=== PATIENT | male | born 1980 | race Caucasian/White ===

== ENCOUNTER → 2023-01-09 | Outpatient (CLI) | payer OTHER, SELFPAY | END | disposition home or self-care (01) | LOC: LABSPEC 08:06 | PROVIDERS: PCP Family Medicine; Referring Provider Family Medicine; Visit Provider Family Medicine | DX: R19.7 Diarrhea, unspecified (principal) | CPT/HCPCS: 83630; 87177; 87209; 87506 ==

== ENCOUNTER → 2023-01-11 | Outpatient (CLI) | payer OTHER, SELFPAY ==
--- NOTE | 2023-01-11 07:24 | US_ITS ---
ACR Level 3 findings have been noted. An addendum which confirms receipt of the report will follow. INDICATION: RUQ PAIN WITH FATTY FOODS EXAMINATION: US Abdomen Limited (quadrant) TECHNIQUE: [place]-scale and color Doppler imaging was performed of the right upper abdominal quadrant. COMPARISON: None. Findings: The liver is homogenous and normal in echogenicity and echotexture. There is no evidence of contour nodularity. No focal hepatic mass is identified. The main portal vein is normal in size and patent demonstrating hepatopetal flow. The gallbladder is unremarkable without evidence of stones, wall thickening or pericholecystic fluid. Sonographic Edwards''s tenderness is not appreciated. There is no evidence of intrahepatic biliary ductal dilatation. The CBD is dilated measuring 9 mm at the level of the damian hepatis. The pancreas is obscured by overlying bowel gas. Right kidney measures 12.9 cm in length. It is normal in echogenicity. No focal renal lesion is identified. There is no evidence of hydronephrosis. US/Abdomen Limited IMPRESSION: Mild dilatation of the common bile duct may be due to an occult stone, mass or stricture. Recommend MRCP for further evaluation. Electronically Signed: Roberto Xiao MD at 20:16 EDT ,
== END | disposition home or self-care (01) ==
LOC: US 07:22
PROVIDERS: PCP Family Medicine; Referring Provider Family Medicine; Visit Provider Family Medicine
DX: R10.11 Right upper quadrant pain (principal)
CPT/HCPCS: 76705

== ENCOUNTER → 2023-01-12 | Outpatient (CLI) | payer OTHER, SELFPAY ==
[2023-01-12 12:40] LABS: Absolute Lymphocyte Count 2.12 X10^3/uL (0.83-4.51); Basophil# 0.09 X10^3/uL; Basophil% 1.9 % (0-1); Eosinophil# 0.19 X10^3/uL; Hematocrit 40.4 % (40-54); Hemoglobin 13.7 g/dL (13.0-16.5); Lymphocyte # 2.12 X10^3/ul (0.83-4.51); Lymphocyte % 44.1 % (19-41); Mean Corp Hgb Conc 33.9 g/dL (32-36); Mean Corpuscular Hgb 29.8 pg (27.0-32.0); Mean Corpuscular Volume 87.8 fL (80-94); Mean Platelet Vol. 10.2 fl (6.2-12.0); Monocyte# 0.41 X10^3/uL; Monocyte% 8.5 % (0-10); NRBC Flagged by Analyzer 0 % (0-5); Neutrophil # 1.99 X10^3/uL (2.7-7.7); Neutrophil % 41.3 % (47-70); Platelet Count 203 K/mm3 (150-450); RBC Distribution Width CV 12.6 % (11.6-14.6); RBC Distribution Width SD 40.5 fl (35.1-43.9); White Blood Count 4.8 K/mm3 (4.4-11.0)
[2023-01-12 12:46] LABS: AST(SGOT) 75 U/L (15-37); Alanine Aminotransfer ALT/SGPT 74 U/L (16-61); Albumin, Serum 3.8 g/dL (3.2-5.0); Alkaline Phosphatase 85 U/L (45-117); Bilirubin, Direct 0.19 mg/dL (0.00-0.30); Globulin 3.4 g/dL (2.2-4.2); Protein, Total 7.2 g/dL (6.4-8.2)
== END | disposition home or self-care (01) ==
LOC: BFHLAB 10:19
PROVIDERS: PCP Family Medicine; Referring Provider Family Medicine; Visit Provider Family Medicine
DX: K83.8 Other specified diseases of biliary tract (principal)
CPT/HCPCS: 36415; 80076; 85025

== ENCOUNTER → 2023-01-18 | Outpatient (CLI) | payer OTHER, SELFPAY ==
--- NOTE | 2023-01-18 07:49 | NM_ITS ---
CLINICAL: 42-year-old male with history of bile duct dilatation. RADIONUCLIDE HEPATOBILIARY SCINTIGRAPHY COMPARISON: Abdominal ultrasound report 01/11/2023 FINDINGS: Following the intravenous administration of 5.5 mCi of 99m Tc Mebrofenin, hepatobiliary images reveal: 1. Relatively prompt and homogeneous radiopharmaceutical concentration is noted by a normal sized liver. No parenchymal defects are identified. 2. Gallbladder activity is identified at 17 minutes post radiopharmaceutical administration. 3. Small intestinal tract is observed at 8-9 minutes following tracer injection. 4. Washout of the radiopharmaceutical by the hepatic parenchyma appears qualitatively normal. Cholecystokinin (0.02 ug/kg) was administered intravenously over a 30-minute period. The post CCK gallbladder ejection fraction calculated at 19 minutes following Cholecystokinin administration was noted to be 67.0 % (normal greater than 35%). During 30 minutes of post CCK imaging, there is no scintigraphic evidence of reflux of the radiotracer into the common hepatic duct or refilling of the gallbladder. RI/Hepatobilliary Img w/Pharm Int IMPRESSION: 1. NORMAL 99m Tc Mebrofenin hepatobiliary imaging examination with Cholecystokinin. A. A gallbladder ejection fraction calculated to be greater than 35% following the administration of Cholecystokinin makes the probability of functional hepatobiliary disease (gallbladder and/or sphincter of Oddi dyskinesia) and/or organic hepatobiliary disease (chronic acalculous cholecystitis and/or cystic duct syndrome) to be low. (Yelena Mohan et al, Journal of Nuclear Medicine 32:1695, 1991). Electronically Signed: Marco A Kevin, at 23:30 EDT ,
== END | disposition home or self-care (01) ==
LOC: NM 07:48
PROVIDERS: PCP Family Medicine; Referring Provider Family Medicine; Visit Provider Family Medicine
DX: R10.11 Right upper quadrant pain (principal)
CPT/HCPCS: 78227; A9537; J2805

== ENCOUNTER → 2023-03-06 | Outpatient (CLI) | payer OTHER, SELFPAY | END | disposition home or self-care (01) | LOC: PSN 06:52 | PROVIDERS: PCP Family Medicine; Referring Provider Family Medicine; Visit Provider Family Medicine | DX: R00.2 Palpitations (principal); I49.3 Ventricular premature depolarization | CPT/HCPCS: 93225; 93226 ==

== ENCOUNTER → 2023-11-23 | Outpatient (CLI) | payer OTHER, SELFPAY ==
--- NOTE | 2023-11-23 07:24 | US_ITS ---
STUDY: ABDOMINAL ULTRASOUND - RIGHT UPPER QUADRANT REASON FOR VISIT: Male, 43 years old Unspecified abdominal pain TECHNIQUE: Ultrasound evaluation of the right upper quadrant was performed with real-time and static alves-scale imaging. TECHNICAL QUALITY: Adequate. COMPARISON: Comparison is made with prior study January 11, 2023. FINDINGS: Liver: The liver is slightly enlarged and measures 17.3 cm. There is increased echogenicity consistent with fatty infiltration. The bile ducts are within normal limits. There is hepatic color flow. The direction of portal flow is hepatopetal. There is no demonstrated mass lesion. Gallbladder: Normal distended gallbladder. The gallbladder wall measures 1.9 mm. There is a negative sonographic Edwards''s sign. There is no pericholecystic fluid. There are no gallstones. Common Bile Duct (C.B.D.): The common bile duct measures 3.8 mm. Pancreas: Normal size of the head, body and tail of the pancreas. There is increased echogenicity of the pancreas. There is no demonstrated pancreatic mass or cyst. Right Kidney: Normal size of the right kidney. The right kidney measures 11.8 cm x 5.7 cm x 5.4 cm. Normal renal cortex. The right cortex measures 1.6 cm. There is no demonstrated renal mass or cyst. There is no right hydronephrosis. US/Abdomen Limited IMPRESSION: Mild hepatomegaly and fatty infiltration of the liver. Electronically Signed: Frank Cooper MD at 15:17 EDT ,
== END | disposition home or self-care (01) ==
PROVIDERS: PCP Family Medicine; Referring Provider Family Medicine; Visit Provider Family Medicine
DX: R74.8 Abnormal levels of other serum enzymes (principal); R10.9 Unspecified abdominal pain
CPT/HCPCS: 76705

== ENCOUNTER 2025-07-27 06:54 | Emergency (ER) | payer OTHER, SELFPAY ==
[2025-07-27 06:55] VITALS: BP 153/100; PULSE 97; RESP 18; TEMP 36.8; O2SAT 99; BMI 30.8
[2025-07-27 07:02] VITALS: BP 168/101; PULSE 94; RESP 18; TEMP 36.8; O2SAT 98
--- NOTE | 2025-07-27 07:06 | EX.ED.DYSGE1 ---
HPI History of Present Illness Chief Complaint: Wound Informant: patient Narrative Narrative: Patient is a 44-year-old male with past medical history of hypertension. 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 He states that his right middle/third finger got pinched between the the hinge of the tailgate and the metal portion of the gate. He states when this occurred he did sustain a small laceration to the middle finger. He states he did not think much of this and continued to work his job and he did so for the rest of Sunday and all day Sunday. He states he woke up this morning and noticed that the middle finger is now swollen and painful. He states he is unsure if this is from a potential fracture buildup of blood or infection and with this presents for evaluation He states he does not have any history of immunosuppression and he reports he is [id number] Medical History HTN (hypertension) Home Medications ?Medication ?Instructions ?Recorded ?Last Taken ?Type amoxicillin 875 mg-potassium 1 tab PO BID 7 days #14 tabs 07/27/25 Unknown Rx clavulanate 125 mg tablet Allergy/AdvReac Type Severity Reaction Status Date / Time No Known Allergies Allergy Verified 07/27/25 06:56 Social History Smoking Status: Never smoker ROS ROS ED Constitutional Constitutional ED: Denies chills or fever(s) Cardiovascular Cardiovascular: Denies chest pain Respiratory/Chest Respiratory/Chest: Denies cough or dyspnea Gastrointestinal Gastrointestinal: Denies abdominal pain, diarrhea, nausea or vomiting Musculoskeletal Musculoskeletal: Reports other Details: Positive right middle finger pain Integumentary Reports other Details: Positive swelling and abrasion to right middle finger Neurologic Neurologic: Denies headache(s), paresthesias or weakness Hematologic/Lymphatic Hematologic/Lymphatic: Denies easy bleeding or easy bruising EXAM Physical Exam Const Vital Signs: 07/27/25 06:55 07/27/25 07:02 Temperature 98.3 F 98.3 F Temperature Source Oral Oral Pulse Rate 97 94 Respiratory Rate 18 18 Blood Pressure 153/100 H 168/101 H Blood Pressure Mean 117 123 Pulse Ox 99 98 Oxygen Delivery Method Room Air Room Air Positive well nourished and well developed General Appearance ED: well developed HEENT HEENT Narrative: Normocephalic atraumatic Eyes PERRL and EOMs intact bilaterally General Eye ED: Negative for scleral icterus Neck supple Resp normal respiratory effort and clear to auscultation bilaterally Cardio regular rate and regular rhythm Extremity Extremity Narrative: Right upper extremity is neurovascularly intact; AIN/PIN are intact and normal. Patient has asymmetric swelling to both the dorsal and volar aspect of the proximal phalanx of the right middle finger. There is asymmetric warmth and mild erythema noted. The patient has a superficial abrasion/laceration at the PIP joint space on the volar aspect of the middle finger as well. There is no crepitance palpated. No lymphangitic streaking. No sign of injury to the tendon. No subungual hematoma Remainder the exam is normal Neuro oriented x3, CN's II-XII intact bilaterally and no sensory deficits noted Sensorium / Orientation: alert Psych mental status grossly normal Skin Skin Narrative: Soft tissue changes to the right middle finger as documented above MDM MDM MDM Narrative Medical decision making narrative: Patient arrived to the ER hypertensive but has a past medical history of this and otherwise stable vitals. He had a direct trauma to his right middle finger 2 days ago. Because of this there is concern for contusion versus hematoma versus fracture. By physical exam there is no sign of ligamentous or tendon injury. With the asymmetric warmth and slight redness this could be developing hematoma from his repetitive use but also potential secondary infection. As he does not have a history of immunosuppression and he does not show signs of infectious tenosynovitis or lymphangitic streaking I do not feel the need for laboratory studies. An x-ray will be obtained to rule out fracture. X-ray revealed no acute fracture or retained foreign body or signs of free air. In order to assess for swelling from hematoma versus potential developing abscess I did place an ultrasound over top of the patient's finger. There was a small black pocket noted concerning for fluid/infection. Therefore I cleaned the finger with chlorhexidine and performed a needle decompression using an 18-gauge needle. The ultrasound confirmed the needle was within the fluid pocket but all that returned was blood indicating the swelling is most likely hematoma. Manual pressure was then applied to the finger to express any remaining blood. The finger was then wrapped with Coban to provide pressure and help prevent return of swelling. In order to cover for potential and faction that is just early in nature as the injury occurred roughly 48 hours ago I will also place him on Augmentin. However as he does not have history of immunosuppression a fever or signs of lymphangitic streaking or crepitance I do not feel the need for further workup at this time and he is otherwise safe for discharge History & Record Review Discussion w/independent historian: Patient Radiography Diagnostic Testing: Clinical Impression(s) from Imaging Studies Hand X-Ray 07/27/25 07:13 IMPRESSION: Soft tissue swelling. No fracture seen. Reading Location: [facility] Right hand x-ray as interpreted by the emergency medicine physician reveals soft tissue swelling of the right third digit without acute fracture or dislocation free air or retained foreign body Discharge Plan Triage Chief Complaint: Wound ED Provider: Jovany Suarez Dx/Rx/DC Orders Clinical Impression: Hematoma of right middle finger, Crushing injury of right middle finger Instructions: ED Crush Injury, Hand, ED Hematoma Prescriptions: New amoxicillin-pot clavulanate 875-125 mg tablet 1 tab PO BID 7 Days Qty: 14 0RF Primary Care Provider: Beverly George Referrals: Beverly George DO [Primary Care Provider, Family Practice] Activity Restrictions/Additional Instructions: Your x-ray revealed no sign of fracture or retained foreign object. The needle decompression only produced blood indicating your swelling is from a hematoma/bleeding underneath the skin from the crush injury. However I do have concern for potential infection setting and based on the contamination of the wound. Therefore take the Augmentin as directed to help prevent this. If you notice that there is foul-smelling discolored thick discharge from the wound/finger you develop a fever or there is streaking down the hand and arm this could indicate worsening infection and you need to return to the ER for repeat evaluation. Otherwise keep the finger wrapped in order to prevent reoccurrence of swelling and ice the area to help with symptoms as well. Print Language: Faroese Disposition Disposition: Home, Self Care
--- NOTE | 2025-07-27 07:13 | RAD_ITS ---
PROCEDURE: HAND MIN 3 VIEWS 07/27/2025 REASON FOR EXAM: INJURY Injury to the 3rd finger. TECHNIQUE: Procedure Code: HARDY Modality: DX Procedure: HAND MIN 3 VIEWS Laterality: Right hand. COMPARISON: None FINDINGS: Bones: No fracture seen. Joints: Normal alignment. Soft tissues: Soft tissue swelling. Other: RAD/Hand Min 3 Views IMPRESSION: Soft tissue swelling. No fracture seen. Reading Location: [facility]
[2025-07-27 08:08] VITALS: BP 164/99; PULSE 78; RESP 16; TEMP 36.8; O2SAT 99
--- OUTSIDE RECORDS SUMMARY | 2025-07-27 08:10 | XMS RPT_ITS | CCD ---
Author Organization [facility] Care Team Providers Care [address] Worker Name Role Phone Beverly George DO Primary Care Provider [phone] MARQUISE SANTANA Attending Unavailable BEVERLY GEORGE Primary Care Unavailable MALYS, BEVERLY YARY Referring Unavailable SANTANA, MARQUISE Attending Unavailable MALYS, BEVERLY YARY Primary Care Unavailable SANTANA, MARQUISE Referring Unavailable MALYS, BEVERLY YARY Primary Care Unavailable Malys, Beverly Primary Care Unavailable Miedel, Apple Referring Unavailable Miedel, Apple Attending Unavailable Malys, Beverly Primary Care Unavailable Malys, Beverly Attending Unavailable Malys, Beverly Referring Unavailable Malys, Beverly Primary Care Unavailable Malys, Beverly Attending Unavailable Malys, Beverly Referring Unavailable Miedel, Apple Attending Unavailable Miedel, Apple Referring Unavailable Malys, Beverly Primary Care Unavailable Eddie, [place] Attending Unavailable Miedel, Apple Attending Unavailable Miedel, Apple Referring Unavailable Malys, Beverly Primary Care Unavailable Miedel, Apple Attending Unavailable Malys, Beverly Primary Care Unavailable Miedel, Apple Referring Unavailable Medications Current Medications Medication Drug Class(es) Dates Sig (Normalized) Sig (Original) amLODIPine 5 mg oral tablet (3 sources) Dihydropyridine Calcium Channel Brad Start: 07-08-2023 take 1 tablet by mouth once daily amLODIPine (Norvasc) 5 mg tablet Take 1 tablet (5 mg) by mouth once daily. 0 07/08/2023 Active hydroCHLOROthiazide 12.5 mg / losartan potassium 100 mg oral tablet (3 sources) Thiazide Diuretic, Angiotensin 2 Receptor Brad take 1 tablet by mouth once daily losartan-hydro chlorothiazide (Hyzaar) 100-12.5 mg tablet Take 1 tablet by mouth once daily. 0 Active zinc gluconate 50 mg oral tablet (3 sources) take 1 tablet by mouth once daily zinc gluconate 50 mg tablet Take 1 tablet (50 mg of elemental zinc) by mouth once daily. 0 Active Problems Active Problems Problem Classification Problem Date Documented Da te Episodic/Chronic Biliary tract disease (1 source) Other specified diseases of biliary tract; Translations: [Other specified diseases of biliary tract] Onset: 01-17-2023 Chronic Nonspecific chest pain (6 sources) Chest pain; Translations: [Chest pain, unspecified] Onset: 09-25-2023 10-09-2023 Episodic Other liver diseases (1 source) Abnormal levels of other serum enzymes; Translations: [Abnormal levels of other serum enzymes] Onset: 11-28-2023 Episodic Unclassified (2 sources) 6-8 week follow up Onset: 10-23-2023 Past or Other Problems Problem Classification Problem Date Documented Da te Episodic/Chronic Abdominal pain (1 source) Right upper quadrant pain; Translations: [Right upper quadrant pain] Onset: 01-23-2023 Episodic Cardiac dysrhythmias (11 sources) Palpitations; Translations: [Palpitations] Onset: 03-21-2023 10-09-2023 Episodic Other gastrointestinal disorders (1 source) Diarrhea, unspecified; Translations: [Diarrhea, unspecified] Onset: 02-27-2023 Episodic Unclassified (3 sources) Onset: 09-25-2023 Resolved: 10-23-2023 09-25-2023 Results Test Name Value Interpretation Reference Range Facility Abdomen Limitedon 11-23-2023 Abdomen Limited [facility] Imaging Services [address] [place] [id number] Abdomen Limited MR#: [id number] Acct: [id number] Name: LUIS ANGEL GUTIERRES Rep #: [id number] : 1980 M 43 From: Frank steele MD PCP: Dr. Beverly George DO Status: [facility] Study: Abdomen Limited Date of Exam: 11/23/23 Exam# [id number] Ordering Dr: [place] [id number] STUDY: ABDOMINAL ULTRASOUND - RIGHT UPPER QUADRANT REASON FOR VISIT: Male, 43 years old Unspecified abdominal pain TECHNIQUE: Ultrasound evaluation of the right upper quadrant was performed with real-time and static urbina-scale imaging. TECHNICAL QUALITY: Adequate. COMPARISON: Comparison is made with prior study January 11, 2023. FINDINGS: Liver: The liver is slightly enlarged and measures 17.3 cm. There is increased echogenicity consistent with fatty infiltration. The bile ducts are within normal limits. There is hepatic color flow. The direction of portal flow is hepatopetal. There is no demonstrated mass lesion. Gallbladder: Normal distended gallbladder. The gallbladder wall measures 1.9 mm. There is a negative sonographic Edwards''s sign. There is no pericholecystic fluid. There are no gallstones. Common Bile Duct (C.B.D.): The common bile duct measures 3.8 mm. Pancreas: Normal size of the head, body and tail of the pancreas. There is increased echogenicity of the pancreas. There is no demonstrated pancreatic mass or cyst. Right Kidney: Normal size of the right kidney. The right kidney measures 11.8 cm x 5.7 cm x 5.4 cm. Normal renal cortex. The right cortex measures 1.6 cm. There is no demonstrated renal mass or cyst. There is no right hydronephrosis. US/Abdomen Limited IMPRESSION: Mild hepatomegaly and fatty infiltration of the liver. Electronically Signed: Frank Cooper MD at 15:17 EDT , CC: Dr. Beverly George DO Family Practice Nurse Practitioner: Signed Normal 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 Study Details: Correct procedure and correct patient verified verbally and with ID Band checked. Patient History: Hypertension, palpitations, and family history of coronary artery disease. Allergies: None. Smoker: Never. Diabetes: No. BMI: Obese >30. Medications: Losartan, hydrochlorothiazide and amlodipine. The patient took medications as prescribed. Patient Performance: The patient exercised to stage IV on a Don protocol for 11 minutes and 00 seconds, achieving 13.30 METS. The peak heart rate achieved was 181 bpm, which was 102 % of the age predicted target heart rate of 177 bpm. The resting blood pressure was 158/91 mmHg with a heart rate of 73 bpm. The standing blood pressure was 143/96 mmHg with a heart rate of 82 bpm. The patient developed dyspnea during the stress exam. The symptoms resolved with rest 4 minutes into recovery. The blood pressure response was hypertensive. The test was terminated due to: dyspnea and achieved age predicted maximum heart rate. Baseline ECG: Resting ECG showed Sinus Arrhythmia with normal tracing. Stress ECG: Stress ECG showed sinus tachycardia. Stress Stage Data: + +---+ ------+-------+ HR Sys BP Soto BP + +---+ ------+-------+ Baseline Resting 73 158 91 + +---+ ------+-------+ Baseline Standing 82 143 96 + +---+ ------+-------+ Stage I 125 155 101 + +---+ ------+-------+ Stage II 148 195 81 + +---+ ------+-------+ Stage III 166 201 79 + +---+ ------+-------+ Stage IV 181 213 92 + +---+ ------+-------+ Recovery ECG: Recovery ECG showed sinus tachycardia. The heart rate recovery was normal. + +---+------ +-------+ HR Sys BP Soto BP + +---+------ +-------+ Recovery I 146 + +---+------ +-------+ Recovery II 133 215 76 + +---+------ +-------+ Recovery IV 115 183 74 + +---+------ +-------+ LV Wall Scoring: Stage:Rest All segments are normal. Stage:Impost All segments are normal. Summary: 1. Baseline EKG shows normal sinus rhythm, occasional PVC, no resting ST-T segment changes. 2. Patient exercised for 11 minutes achieving 13.3 METS. 3. Heart rate response to exercise is normal. Blood pressure response to exercise is hypertensive. 4. Exercise capacity is average for age. 5. With exercise no ST-T segment changes suggestive of ischemia or sustained ventricular arrhythmias are seen. 6. No echocardiographic changes consistent with ischemia, sensitivity is somewhat reduced due to suboptimal images. 7. Mosher treadmill score is 11 (low risk). 8. Overall, no electrocardiographic or echocardiographic evidence of ischemia. Sensitivity of echocardiographic images is reduced due to suboptimal images. 9. Adequate level of stress achieved. 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 Study Details: Correct procedure and correct patient verified verbally and with ID Band checked. Patient History: Hypertension, palpitations, and family history of coronary artery disease. Allergies: None. Smoker: Never. Diabetes: No. BMI: Obese >30. Medications: Losartan, hydrochlorothiazide and amlodipine. The patient took medications as prescribed. Patient Performance: The patient exercised to stage IV on a Don protocol for 11 minutes and 00 seconds, achieving 13.30 METS. The peak heart rate achieved was 181 bpm, which was 102 % of the age predicted target heart rate of 177 bpm. The resting blood pressure was 158/91 mmHg with a heart rate of 73 bpm. The standing blood pressure was 143/96 mmHg with a heart rate of 82 bpm. The patient developed dyspnea during the stress exam. The symptoms resolved with rest 4 minutes into recovery. The blood pressure response was hypertensive. The test was terminated due to: dyspnea and achieved age predicted maximum heart rate. Baseline ECG: Resting ECG showed Sinus Arrhythmia with normal tracing. Stress ECG: Stress ECG showed sinus tachycardia. Stress Stage Data: + +---+ ------+-------+ HR Sys BP Soto BP + +---+ ------+-------+ Baseline Resting 73 158 91 + +---+ ------+-------+ Baseline Standing 82 143 96 + +---+ ------+-------+ Stage I 125 155 101 + +---+ ------+-------+ Stage II 148 195 81 + +---+ ------+-------+ Stage III 166 201 79 + +---+ ------+-------+ Stage IV 181 213 92 + +---+ ------+-------+ Recovery ECG: Recovery ECG showed sinus tachycardia. The heart rate recovery was normal. + +---+------ +-------+ HR Sys BP Soto BP + +---+------ +-------+ Recovery I 146 + +---+------ +-------+ Recovery II 133 215 76 + +---+------ +-------+ Recovery IV 115 183 74 + +---+------ +-------+ LV Wall Scoring: Stage:Rest All segments are normal. Stage:Impost All segments are normal. Summary: 1. Baseline EKG shows normal sinus rhythm, occasional PVC, no resting ST-T segment changes. 2. Patient exercised for 11 minutes achieving 13.3 METS. 3. Heart rate response to exercise is normal. Blood pressure response to exercise is hypertensive. 4. Exercise capacity is average for age. 5. With exercise no ST-T segment changes suggestive of ischemia or sustained ventricular arrhythmias are seen. 6. No echocardiographic changes consistent with ischemia, sensitivity is somewhat reduced due to suboptimal images. 7. Mosher treadmill score is 11 (low risk). 8. Overall, no electrocardiographic or echocardiographic evidence of ischemia. Sensitivity of echocardiographic images is reduced due to suboptimal images. 9. Adequate level of stress achieved. 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 Study Details: Correct procedure and correct patient verified verbally and with ID Band checked. Patient History: Hypertension, palpitations, and family history of coronary artery disease. Allergies: None. Smoker: Never. Diabetes: No. BMI: Obese >30. Medications: Losartan, hydrochlorothiazide and amlodipine. The patient took medications as prescribed. Patient Performance: The patient exercised to stage IV on a Don protocol for 11 minutes and 00 seconds, achieving 13.30 METS. The peak heart rate achieved was 181 bpm, which was 102 % of the age predicted target heart rate of 177 bpm. The resting blood pressure was 158/91 mmHg with a heart rate of 73 bpm. The standing blood pressure was 143/96 mmHg with a heart rate of 82 bpm. The patient developed dyspnea during the stress exam. The symptoms resolved with rest 4 minutes into recovery. The blood pressure response was hypertensive. The test was terminated due to: dyspnea and achieved age predicted maximum heart rate. Baseline ECG: Resting ECG showed Sinus Arrhythmia with normal tracing. Stress ECG: Stress ECG showed sinus tachycardia. Stress Stage Data: + +---+ ------+-------+ HR Sys BP Soto BP + +---+ ------+-------+ Baseline Resting 73 158 91 + +---+ ------+-------+ Baseline Standing 82 143 96 + +---+ ------+-------+ Stage I 125 155 101 + +---+ ------+-------+ Stage II 148 195 81 + +---+ ------+-------+ Stage III 166 201 79 + +---+ ------+-------+ Stage IV 181 213 92 + +---+ ------+-------+ Recovery ECG: Recovery ECG showed sinus tachycardia. The heart rate recovery was normal. + +---+------ +-------+ HR Sys BP Soto BP + +---+------ +-------+ Recovery I 146 + +---+------ +-------+ Recovery II 133 215 76 + +---+------ +-------+ Recovery IV 115 183 74 + +---+------ +-------+ LV Wall Scoring: Stage:Rest All segments are normal. Stage:Impost All segments are normal. Summary: 1. Baseline EKG shows normal sinus rhythm, occasional PVC, no resting ST-T segment changes. 2. Patient exercised for 11 minutes achieving 13.3 METS. 3. Heart rate response to exercise is normal. Blood pressure response to exercise is hypertensive. 4. Exercise capacity is average for age. 5. With exercise no ST-T segment changes suggestive of ischemia or sustained ventricular arrhythmias are seen. 6. No echocardiographic changes consistent with ischemia, sensitivity is somewhat reduced due to suboptimal images. 7. Mosher treadmill score is 11 (low risk). 8. Overall, no electrocardiographic or echocardiographic evidence of ischemia. Sensitivity of echocardiographic images is reduced due to suboptimal images. 9. Adequate level of stress achieved. [id number] Alin Mixon MD Electronically signed on 10/09/2023 at 3:10:05 PM Rest Impost Final [facility] Work Phone: Radiology Study observation (narrative) [facility] Work Phone: Stress cardiac echo study re portOrdered By: Alin Mixon on 10-09-2023 [facility] Work Phone: Hepatobilliary Img w/Pharm I nton 01-18-2023 Hepatobilliary Img w/Pharm Int [facility] Imaging Services [address] [place] [id number] Hepatobilliary Img w/Pharm Int MR#: [id number] Acct: [id number] Name: LUIS ANGEL GUTIERRES Rep #: [id number] : 1980 M 42 From: Marco A Rossi PCP: Dr. Beverly George, DO Status: REG CLI Study: Hepatobilliary Img w/Pharm Int Date of Exam: 0 01/18/23 Exam# [id number] Ordering Dr: Apple Toney MD CLINICAL: 42-year-old male with history of bile duct dilatation. RADIONUCLIDE HEPATOBILIARY SCINTIGRAPHY COMPARISON: Abdominal ultrasound report 01/11/2023 FINDINGS: Following the intravenous administration of 5.5 mCi of 99m Tc Mebrofenin, hepatobiliary images reveal: 1. Relatively prompt and homogeneous radiopharmaceutical concentration is noted by a normal sized liver. No parenchymal defects are identified. 2. Gallbladder activity is identified at 17 minutes post radiopharmaceutical administration. 3. Small intestinal tract is observed at 8-9 minutes following tracer injection. 4. Washout of the radiopharmaceutical by the hepatic parenchyma appears qualitatively normal. Cholecystokinin (0.02 ug/kg) was administered intravenously over a 30-minute period. The post CCK gallbladder ejection fraction calculated at 19 minutes following Cholecystokinin administration was noted to be 67.0 % (normal greater than 35%). During 30 minutes of post CCK imaging, there is no scintigraphic evidence of reflux of the radiotracer into the common hepatic duct or refilling of the gallbladder. NM/Hepatobilliary Img w/Pharm Int IMPRESSION: 1. NORMAL 99m Tc Mebrofenin hepatobiliary imaging examination with Cholecystokinin. A. A gallbladder ejection fraction calculated to be greater than 35% following the administration of Cholecystokinin makes the probability of functional hepatobiliary disease (gallbladder and/or sphincter of Oddi dyskinesia) and/or organic hepatobiliary disease (chronic acalculous cholecystitis and/or cystic duct syndrome) to be low. (Yelena Mohan et al, Journal of Nuclear Medicine 32:1695, 1990). Electronically Signed: Marco A Kevin, at 23:30 EDT , CC: Dr. Apple Toney MD; Dr. Beveryl George DO Family Practice Nurse Practitioner: Signed Normal [facility] Ova and Parasites 8623on OP OVA AND PARASITES EX AM, ROUTINE These results were obtained using wet preparation(s) and trichrome stained smear. This test does not include testing for Crytosporidium parvum, Cyclospora, or Microsporidia. O+P Spec Micro One negative specimen does not rule out the possibility of a parasitic infection. TESTING PERFORMED AT [facility]. ORIGINAL REPORT ON FILE IN LAB CONTAINS ADDITIONAL TEST SITE INFORMATION. Ova/Parasite Exam NO OVA, CYSTS, OR PARASITES FOUND. Normal [facility] Comment on above: Performed By: #### M 100.0605, M100.637, M600.5000 #### [facility] [address] [place], [address] Ova and parasitesOrdered By: Dr. Toney on 01-18-2023 Ova and parasites identified LM Nom (Unsp spec) [facility] Absolute lymphocyte countOrd ered By: Dr. Toney on 01-12-2023 Lymphocytes Auto (Unsp spec) [#/Vol] 2.12 10*3/uL 0.83-4.51 [facility] Basophil percentageOrdered B y: Dr. Toney on 01-12-2023 Basophils/100 WBC (Bld) 1.9 % 0-1 [facility] Bilirubin [Mass/Vol] 0.60 mg/dL 0.20-1.00 [facility] Comment on above: For patients on eltr ombopag therapy, use of Dimension Rohwer TBIL is not recommended. Eosinophils/100 WBC (Bld) 4.0 % 0-5 [facility] Neutrophils (Bld) [#/Vol] 2.0 10*3/uL 2.0-7.7 [facility] Neutrophils/100 WBC (Bld) 41.3 % 47-70 [facility] Protein [Mass/Vol] 7.2 g/dL 6.4-8.2 [facility] WBC (Bld) [#/Vol] 4.8 10*3/uL 4.4-11.0 [facility] Blood erythrocytes count (nu mber/volume)Ordered By: Dr. Toney on 01-12-2023 RBC (Bld) [#/Vol] 4.60 10*6/uL 4.6-6.2 [facility] Blood hemoglobin measurement (mass/volume)Ordered By: Dr. Toney on 01-12-2023 Hemoglobin (Bld) [Mass/Vol] 13.7 g/dL 13.0-16.5 [facility] Blood lymphocytes/100 leukoc ytesOrdered By: Dr. Toney on 01-12-2023 Lymphocytes/100 WBC (Bld) 44.1 % 19-41 [facility] Blood monocytes/100 leukocyt esOrdered By: Dr. Toney on 01-12-2023 Monocytes/100 WBC (Bld) 8.5 % 0-10 [facility] Blood platelet mean volumeOr dered By: Dr. Toney on 01-12-2023 Platelet mean volume (Bld) [Entitic vol] 10.2 fL 6.2-12.0 [facility] CBC W/Diff, Automatedon Absolute Lymph 2.12 X10 3/uL Normal 0.83-4.51 [facility] Comment on above: Performed By: #### L 100.0100, L500.3400 #### [facility] [address] [place], [address] Absolute Neut 2.0 X10 3/uL Normal 2.0-7.7 [facility] Comment on above: Performed By: #### L 100.0100, L500.3400 #### [facility] [address] [place], [address] Basophils/100 WBC (Bld) 1.9 % High 0-1 [facility] Comment on above: Performed By: #### L 100.0100, L500.3400 #### [facility] [address] [place], [address] Eosinophils/100 WBC (Bld) 4.0 % Normal 0-5 [facility] Comment on above: Performed By: #### L 100.0100, L500.3400 #### [facility] [address] [place], [address] Erythrocyte distribution width (RBC) [Ratio] 12.6 % Normal 11.6-14.6 [facility] Comment on above: Performed By: #### L 100.0100, L500.3400 #### [facility] [address] [place], [address] Hematocrit (Bld) [Volume fraction] 40.4 % Normal 40-54 [facility] Comment on above: Performed By: #### L 100.0100, L500.3400 #### [facility] [address] [place], [address] Hemoglobin (Bld) [Mass/Vol] 13.7 g/dL Normal 13.0-16.5 [facility] Comment on above: Performed By: #### L 100.0100, L500.3400 #### [facility] [address] [place], [address] IG% 0.200 Normal 0.0-0.9 [facility] Comment on above: Result Comment: IG% - Immature Granulocytes (promyelocytes, myelocytes and metamyelocytes) > 1% indicates that a LEFT SHIFT is Present. Performed By: #### L 100.0100, L500.3400 #### [facility] [address] [place], [address] Lymphocytes/100 WBC (Bld) 44.1 % High 19-41 [facility] Comment on above: Performed By: #### L 100.0100, L500.3400 #### [facility] [address] [place], [address] MCH (RBC) [Entitic mass] 29.8 pg Normal 27.0-32.0 [facility] Comment on above: Performed By: #### L 100.0100, L500.3400 #### [facility] [address] [place], [address] MCHC (RBC) [Mass/Vol] 33.9 g/dL Normal 32-36 [facility] Comment on above: Performed By: #### L 100.0100, L500.3400 #### [facility] [address] [place], [address] MCV (RBC) [Entitic vol] 87.8 fL Normal 80-94 [facility] Comment on above: Performed By: #### L 100.0100, L500.3400 #### [facility] [address] [place], [address] Monocytes/100 WBC (Bld) 8.5 % Normal 0-10 [facility] Comment on above: Performed By: #### L 100.0100, L500.3400 #### [facility] [address] [place], [address] Neutrophils/100 WBC (Bld) 41.3 % Low 47-70 [facility] Comment on above: Performed By: #### L 100.0100, L500.3400 #### [facility] [address] [place], [address] Nucleated RBC (Bld) [#/Vol] 0 10*3/uL Normal 0-5 [facility] Comment on above: Performed By: #### L 100.0100, L500.3400 #### [facility] [address] [place], [address] Platelet mean volume (Bld) [Entitic vol] 10.2 fL Normal 6.2-12.0 [facility] Comment on above: Performed By: #### L 100.0100, L500.3400 #### [facility] [address] [place], [address] Platelets (Bld) [#/Vol] 203 10*3/uL Normal 150-450 [facility] Comment on above: Performed By: #### L 100.0100, L500.3400 #### [facility] [address] [place], [address] RBC (Bld) [#/Vol] 4.60 10*6/uL Normal 4.6-6.2 [facility] Comment on above: Performed By: #### L 100.0100, L500.3400 #### [facility] [address] [place], [address] RDW SD 40.5 fl Normal 35.1-43.9 [facility] Comment on above: Performed By: #### L 100.0100, L500.3400 #### [facility] [address] [place], [address] WBC (Bld) [#/Vol] 4.8 10*3/uL Normal 4.4-11.0 [facility] Comment on above: Performed By: #### L 100.0100, L500.3400 #### [facility] [address] [place], [address] Determination of erythrocyte mean corpuscular volume (MCV)Ordered By: Dr. Toney on 01-12-2023 MCV (RBC) [Entitic vol] 87.8 fL 80-94 [facility] Direct bilirubinOrdered By: Dr. Toney on 01-12-2023 Bilirubin.direct [Mass/Vol] 0.19 mg/dL 0.00-0.30 [facility] Hematocrit Auto (Bld) [Volum e fraction]Ordered By: Dr. Toney on 01-12-2023 Hematocrit (Bld) [Volume fraction] 40.4 % 40-54 [facility] - Chemistry and C hemistry - challengeOrdered By: Dr. Toney on 01-12-2023 ALP [Catalytic activity/Vol] 85 U/L 45-117 [facility] ALT [Catalytic activity/Vol] 74 U/L 16-61 [facility] Globulin (S) [Mass/Vol] 3.4 g/dL 2.2-4.2 [facility] - Hematology and Cell countsOrdered By: Dr. Toney on 01-12-2023 Erythrocyte distribution width (RBC) [Entitic vol] 40.5 fL 35.1-43.9 [facility] Erythrocyte distribution width (RBC) [Ratio] 12.6 % 11.6-14.6 [facility] Immature granulocytes/100 WBC (Bld) 0.200 % 0.0-0.9 [facility] Comment on above: IG% - Immature Granu locytes (promyelocytes, myelocytes and metamyelocytes) > 1% indicates that a LEFT SHIFT is Present. MCH (RBC) [Entitic mass] 29.8 pg 27.0-32.0 [facility] Nucleated RBC/100 WBC (Bld) [Ratio] 0 % 0-5 [facility] Liver Profileon 01-12-2023 Albumin [Mass/Vol] 3.8 g/dL Normal 3.2-5.0 [facility] Comment on above: Performed By: #### L 100.0100, L500.3400 #### [facility] [address] [place], [address] ALK P 85 U/L Normal 45-117 [facility] Comment on above: Performed By: #### L 100.0100, L500.3400 #### [facility] [address] [place], [address] ALT [Catalytic activity/Vol] 74 U/L High 16-61 [facility] Comment on above: Performed By: #### L 100.0100, L500.3400 #### [facility] [address] [place], [address] AST [Catalytic activity/Vol] 75 U/L High 15-37 [facility] Comment on above: Performed By: #### L 100.0100, L500.3400 #### [facility] [address] [place], [address] Bilirubin [Mass/Vol] 0.60 mg/dL Normal 0.20-1.00 [facility] Comment on above: Result Comment: For patients on eltrombopag therapy, use of Dimension Rohwer TBIL is not recommended. Performed By: #### L 100.0100, L500.3400 #### [facility] [address] [place], [address] Bilirubin.direct [Mass/Vol] 0.19 mg/dL Normal 0.00-0.30 [facility] Comment on above: Performed By: #### L 100.0100, L500.3400 #### [facility] [address] [place], [address] Globulin (S) [Mass/Vol] 3.4 g/dL Normal 2.2-4.2 [facility] Comment on above: Performed By: #### L 100.0100, L500.3400 #### [facility] [address], [address] T PROT 7.2 g/dL Normal 6.4-8.2 [facility] Comment on above: Performed By: #### L 100.0100, L500.3400 #### [facility] [address] [place], [address] MCHC Auto (RBC) [Mass/Vol]Or dered By: Dr. Toney on 01-12-2023 MCHC (RBC) [Mass/Vol] 33.9 g/dL 32-36 [facility] Platelets bldOrdered By: Dr. Toney on 01-12-2023 Platelets (Bld) [#/Vol] 203 10*3/uL 150-450 [facility] Serum or plasma albumin cesar urement (mass/volume)Ordered By: Dr. Toney on 01-12-2023 Albumin [Mass/Vol] 3.8 g/dL 3.2-5.0 [facility] Thin prep Papanicolaou smear with manual screeningOrdered By: Dr. Toney on 01-12-2023 Thin prep Papanicolaou smear with manual screening 75 U/L 15-37 [facility] Abdomen Limitedon 01-11-2023 Abdomen Limited [facility] Imaging Services [address] [place] [address] Abdomen Limited MR#: [id number] Acct: [id number] Name: LUIS ANGEL GUTIERRES Rep #: [id number] : 1980 M 42 From: Roberto leigh MD PCP: Dr. Beverly George DO Status: REG CLI Study: Abdomen Limited Date of Exam: 01/11/23 Exam# [id number] Ordering Dr: Apple Toney MD ACR Level 3 findings have been noted. An addendum which confirms receipt of the report will follow. INDICATION: RUQ PAIN WITH FATTY FOODS EXAMINATION: US Abdomen Limited (quadrant) TECHNIQUE: [place]-scale and color Doppler imaging was performed of the right upper abdominal quadrant. COMPARISON: None. Findings: The liver is homogenous and normal in echogenicity and echotexture. There is no evidence of contour nodularity. No focal hepatic mass is identified. The main portal vein is normal in size and patent demonstrating hepatopetal flow. The gallbladder is unremarkable without evidence of stones, wall thickening or pericholecystic fluid. Sonographic Edwards''s tenderness is not appreciated. There is no evidence of intrahepatic biliary ductal dilatation. The CBD is dilated measuring 9 mm at the level of the damian hepatis. The pancreas is obscured by overlying bowel gas. Right kidney measures 12.9 cm in length. It is normal in echogenicity. No focal renal lesion is identified. There is no evidence of hydronephrosis. US/Abdomen Limited IMPRESSION: Mild dilatation of the common bile duct may be due to an occult stone, mass or stricture. Recommend MRCP for further evaluation. Electronically Signed: Roberto Xiao MD at 20:16 EDT , CC: Dr. Apple Toney MD; Dr. Beverly George DO Family Practice Nurse Practitioner: Signed Normal [facility] ENTERIC PATHOGEN PANEL STOOL on 01-09-2023 EP PANEL Results called on 01/09/23-1345 by [place] M[facility]RY AT [phone]. Norovirus Gl/Gll detected. Contact precautions should be followed for these patients and limit exposure to others since spread of disease is common. Treatment is often not needed for this pathogen. This is an amplified DNA test which makes it both specific and sensitive. Normal Reference Range = Not Detected GI pathogens Pnl Stl ALFREDO+probe Nucleic acid amplification test method CAMPYLOBACTER Not Detected Norovirus A Norovirus Detected A Rotavirus Not Detected Salmonella Not Detected Shiga Toxin Not Detected Shigella sp. Not Detected VIBRIO Not Detected Yersinia Not Detected Norovirus Normal [facility] Comment on above: Performed By: #### M 100.0605, M100.637, M600.5000 #### [facility] [address] [place], [address] Gastrointestinal pathogens p jo ann ALFREDO+probe (Stl)Ordered By: Dr. Toney on 01-09-2023 Enteric Bacteriology Norovirus [facility] Ova and parasitesOrdered By: Apple Toney on 01-09-2023 Ova and parasites identified LM Nom (Unsp spec) [facility] Stool Lactoferrin/WBCon 12-13 WBCST Normal Reference Ran ge = Negative Fecal WBC Lactoferrin A Positive: Fecal WBC Lactoferrin present A Normal [facility] Comment on above: Performed By: #### M 100.0605, M100.637, M600.5000 #### [facility] [address] [facility] [place], [place], [address] Stool lactoferrin detection by immunoassayOrdered By: Dr. Toney on 01-09-2023 Lactoferrin IA Ql (Stl) [facility] Vital Signs Date Time Vital Sign Value Performing Clinician Faci lity 10-23-2023 13:11040 Body height 193 cm Marquise Santana MD Work Phone: [facility] 10-23-2023 13:11040 Body mass index (BMI) [Ratio] 31.4 kg/m2 Marquise Santana MD Work Phone: [facility] 10-23-2023 13:11-040 Body weight 117.03 kg Marquise Santana MD Work Phone: [facility] 10-23-2023 13:11-040 Diastolic blood pressure 80 mm[Hg] Marquise Santana MD Work Phone: [facility] 10-23-2023 13:11-0400 Heart rate 92 /min Marquise Santana MD Work Phone: [facility] 10-23-2023 13:11-0400 SaO2% (BldA) [Mass fraction] 97 % Marquise Santana MD Work Phone: [facility] 10-23-2023 13:11-0400 Systolic blood pressure 132 mm[Hg] Marquise Santana MD Work Phone: [facility] 10-09-2023 10:22-0500 Diastolic blood pressure 96 mm[Hg] [facility] 1 [facility] 10-09-2023 10:22-0500 Heart rate 82 /min [facility] 1 [facility] 10-09-2023 10:22-0500 Systolic blood pressure 143 mm[Hg] [facility] 1 [facility] Encounters Encounter Date Encounter Type Care Provider Facility Start: 11-23-2023 End: 11-23-2023 ambulatory [facility] Work Phone: Start: 11-23-2023 End: 11-23-2023 Patient encounter procedure [facility] [facility], [facility] Work Phone: Start: 10-23-2023 End: 10-23-2023 ambulatory [facility] Ambulatory Start: 10-23-2023 End: 10-23-2023 Office outpatient visit 25 minutes Marquise Santana MD Work Phone: [facility] Comment on above: Palpitations (Primar y Dx) Start: 10-09-2023 End: 10-10-2023 ambulatory [facility] Start: 10-09-2023 End: 10-09-2023 Subsequent hospital visit by physician [facility] Comment on above: Chest pain, unspecif ied type; Palpitations Start: 09-25-2023 End: 09-25-2023 ambulatory [facility] Start: 03-06-2023 End: 03-06-2023 ambulatory [facility] Work Phone: Start: 03-06-2023 End: 03-06-2023 Patient encounter procedure [facility] Services/Neurology Work Phone: Start: 01-18-2023 End: 01-18-2023 ambulatory [facility] Work Phone: Start: 01-18-2023 End: 01-18-2023 Patient encounter procedure [facility]Nuclear Medicine, [facility] Start: 01-12-2023 End: 01-12-2023 ambulatory [facility] Work Phone: Start: 01-12-2023 End: 01-12-2023 Patient encounter procedure [facility]atory, [place] [facility] Start: 01-11-2023 End: 01-11-2023 ambulatory [facility] Work Phone: Start: 01-11-2023 End: 01-11-2023 Patient encounter procedure [facility]-Ultrasound, [facility] Start: 01-09-2023 End: 01-09-2023 ambulatory [facility] Work Phone: Start: 01-09-2023 End: 01-09-2023 Patient encounter procedure [facility]Laboratory, Specimen Procedures Date Procedure Procedure Detail Performing Clinician Start: 11-23-2023 Ultrasonography of abdomen Start: 10-09-2023 ECHOCARDIOGRAM STRESS TEST MARQUISE SANTANA Start: 10-09-2023 Echo ttc r-t 2d w/ wo m-mode complete rest&st Marquise Santana MD Work Phone: Start: 09-25-2023 ECG 12-[facility] Start: 01-18-2023 Radionuclide imaging of liver and/or biliary tract using radioactive isotope Start: 01-11-2023 Ultrasonography of abdomen Start: 01-09-2023 Ova OR parasites identification Clostridium difficil e detection Lactoferrin measurement Nucleic acid assay Ova OR parasites identification Plan of Treatment Date Care Activity Detail Author Start: 2030 Zoster Vaccines (1 of 2) Zoste r Vaccines (1 of 2) [facility] Start: 10-23-2023 End: 10-23-2023 Patient encounter procedure 10/23/2023 1:15 PM EDT Office Visit [facility] [address] [place] [address] Marquise Santana MD [address] [facility] [address] [facility] [address] [place] [address] [place] [id number] [facility] Start: 04-13-2023 Influenza vaccination Influenza Vacc ine (#1) [facility] Start: 2002 DTaP/Tdap/Td Vaccine s (1 - Tdap) DTaP/Tdap/Td Vaccines (1 - Tdap) [facility] Start: 1998 Hepatitis C screening Hepatitis C [facility] Start: 1981 MMR Vaccines (1 of 1 - Standard series) MMR Vaccines (1 of 1 - Standard series) [facility] Start: 02-08-1981 COVID-19 Vaccine (#1) COVID-19 Vacci ne (#1) [facility] Start: 1980 Hepatitis B Vaccines (1 of 3 - 3-dose series) Hepatitis B Vaccines (1 of 3 - 3-dose series) [facility] Start: 1980 HIV screening HIV Screening [facility] Start: 1980 Lipid panel Lipid Panel [facility] Start: 1980 Yearly Adult Physical Yearly Adult P hysical [facility] Ova and parasites identified in Unspecified specimen by Light microscopy [facility] Payers Date Payer Category Payer Private Health Insurance [employer] [id number] 2023-Present P [place] [id number] U[place] Segura [id number] 2023 Private Health Insurance [id number] 2023 Private Health Insurance [id number] 2023 Self-pay 1980 Unknown [id number] 1980 Unknown [id number] 1980 Unknown [id number] Unknown [id number] Unknown [id number] Unknown [id number] Unknown [id number] .462 Unknown [id number] .462 Unknown [id number] .462 Unknown [id number] Social History Date Type Detail Facility [facility] ever [facility] Work Phone: Start: 1980 Sex Assigned At Male [facility] Start: 09-25-2023 [facility] Never [facility] tobacco [facility] Work Phone: Start: 09-25-2023 Tobacco use and exposure Smokeless tobacco non-user [facility] Work Phone: Start: 09-25-2023 End: 10-23-2023 Alcohol intake Ex-drinker (finding) [facility] Work Phone: Start: 09-25-2023 History of Social function [facility] Work Phone: Start: 09-25-2023 Tobacco use panel [facility] Work Phone: Start: 1980 Sex Assigned At Not on file [facility] Work Phone: Start: 09-29-2023 End: 10-23-2023 Exposure to SARS-CoV-2 (event) Not sure [facility] History of Present illness Narrative 10-23-2023 Marquise Santana MD - 10/23/2023 1:15 PM EDT Note Date & Type Note Facility 10-23-2023 History of Present illness Narrative Images from the original note were not included. Cardiac Electrophysiology Office Visit Referred by Dr. Hwang ref. provider found for Chief Complaint Patient presents with 6-8 week follow up HPI: Luis Angel Gutierres is a 43 y.o. year old male patient with h/o HTN, palpitations presenting today for follow up Objective Current Outpatient Medications Medication Instructions amLODIPine (NORVASC) 5 mg, oral, Daily losartan-hydrochlorothiazide (Hyzaar) 100-12.5 mg tablet 1 tablet, oral, Daily zinc gluconate 50 mg tablet 50 mg of elemental zinc, oral, Daily Visit Vitals BP 132/80 Pulse 92 Ht 1.93 m (6' 4) Wt 117 kg (258 lb) SpO2 97% BMI 31.40 kg/m Smoking Status Never BSA 2.5 m Physical Exam Vitals reviewed. Constitutional: Appearance: Normal appearance. HENT: Head: Normocephalic. Cardiovascular: Rate and Rhythm: Normal rate and regular rhythm. Pulmonary: Effort: Pulmonary effort is normal. No respiratory distress. Breath sounds: No wheezing. Skin: General: Skin is warm and dry. Capillary Refill: Capillary refill takes less than 2 seconds. Neurological: Mental Status: He is alert. Psychiatric: Mood and Affect: Mood normal. My Interpretation of Reviewed Study(s): Stress echo (September 2023): Max stress achieved 13.3 METS exercised for 11 minutes stage IV on Don protocol. No ST changes during stress echo showed a normal LV function Assessment/Plan #Palpitations No sports during schooling. 1 episode of LOC during childhood (age 13), no high risk features in history of family history. Per pt Sx have not worsened, however the symptoms have been fairly sporadic in nature. Patient does have some Q waves in lead III and aVF no prior history of infarct. At this time repeating a monitor may not yield useful information since the episodes can be by months and therefore a 30-day monitor may not be high yield. If frequency increases then a monitor would help ascertain the etiology of the palpitations. Stress test completely normal and patient reports symptomatically he is doing well Continue to monitor for recurrence or change in frequency #HTN Controlled c/w Amlodipine 5mg Daily c/w Losartan-hydrochlorothiazide 100-12.5mg Daily Return to Clinic: Patient should continue to follow with their PCP, and can be referred back to me if any changes or new EP concerns arise. Marquise Santana MD [facility] Cardiac Electrophysiology [email or web address] Disclaimer: This note was dictated by speech recognition, and every effort has been made to prevent any error in skein dyer, however minor errors may be present documented in this encounter [facility] Work Phone: Evaluation note Note Date & Type Note Facility Evaluation note No assessment information availa [facility] Work Phone: Evaluation note Note Date & Type Note Facility Evaluation note Diagnosis Chest pain, unspecified type Palpitations documented in this encounter [facility] Work Phone: Evaluation note Note Date & Type Note Facility Evaluation note Diagnosis Palpitations- Primary documented in this encounter [facility] Work Phone: Chief Complaint and Reason for Visit Chief Complaint RUQ PAIN WITH FATTY FOODS Chief Complaint RUQ PAIN WITH FATTY FOODS BILE DUCT DILATION WITH NORMAL LABS Chief Complaint RUQ PAIN WITH FATTY FOODS BILE DUCT DILATION WITH NORMAL LABS PALPITATIONS AND VENTRICULAR DEPOLARIZATION Chief Complaint ABD PAIN Reason for Referral Specialty Diagnoses / Procedures Referred By Contac t Referred To Contact Cardiology Diagnoses Chest pain, unspecified type Palpitations Procedures Echocardiogram Stress Test IA ECHO TTHRC R-T 2D W/WOM-MODE COMPL SPEC&COLR D IA CV STRS TST XERS&/OR RX CONT ECG W/O I&R Marquise Santana MD [address] [place] [address] Referral ID Status Reason Start Date Expiration Date Visits Requested Visits Authorized [id number] Authorized Perform Procedure 09/25/2023 09/24/2024 1 1 Summary Purpose Family History No Family History Records FoundNo Family History Records FoundNo Family History Records Found Advance Directives No Advanced Directives Records FoundNo Advanced Directives Records FoundNo Advanced Directives Records Found Additional Source Comments Care Teams (unrecognized sec tion and content) Team Status: Active Member Role Status Dates Dr. Beverly George DO Family Provider Active Dr. Beverly George DO Primary Care Provider Active Team Status: Active Member Role Status Dates Dr. Beverly George DO Primary Care Provider Active Dr. Apple Toney MD Attending Provider, Referring P rovider Active Team Status: Inactive Member Role Status Dates Dr. Beverly George DO Primary Care Provider Active Dr. Apple Toney MD Attending Provider, Referring P rovider Active Team Status: Inactive Member Role Status Dates Dr. Beverly George DO Primary Care Provide r, Attending Provider, Referring Provider Active [employer] Worker Relationship Specialty Start Date End Date Beverly George DO [address] [place] [phone] PCP - General Family Medicine 09/25/[address] Worker Relationship Specialty Start Date End Date Beverly George DO [address] [place] [phone] PCP - General Family Medicine 09/25/23 Goals (unrecognized section and content) Goals may be documented in a n alternate sectionGoals may be documented in an alternate sectionGoals may be documented in an alternate sectionGoals may be documented in an alternate sectionGoals may be documented in an alternate section Reason for Visit (unrecogniz ed section and content) Specialty Diagnoses / Procedures Referred By Contac t Referred To Contact Cardiology Diagnoses Chest pain, unspecified type Palpitations Procedures Echocardiogram Stress Test IA ECHO TTHRC R-T 2D W/WOM-MODE COMPL SPEC&COLR D IA CV STRS TST XERS&/OR RX CONT ECG W/O I&R Marquise Santana MD [address] [facility] [address], [facility] [address] [place] [address] Referral ID Status Reason Start Date Expiration Date Visits Requested Visits Authorized [id number] Authorized Perform Procedure 09/25/2023 09/24/2024 1 1 Reason Comments 6-8 week follow up (unrecognized sect ion and content) No Status Records FoundNo Status Records FoundNo Status Records Found INFORMATION SOURCE (unrecogn ized section and content) DATE CREATED AUTHOR 10/24/[address] [facility] DATE CREATED AUTHOR AUTHOR'S ORGANIZ ATION 10/29/2023 [facility] DATE CREATED AUTHOR AUTHOR'S ORGANIZ ATION 11/29/2023 [facility] FOR RECORDS PERTAINING TO PATIENTS WHO ARE OR HAVE BEEN ENROLLED IN A CHEMICAL DEPENDENCY/SUBSTANCEABUSE PROGRAM, SOME INFORMATION MAY BE OMITTED. This clinical summary was aggregated from multiple sources. Caution should be exercised in using it in the provision of clinical care. This summary normalizes information from multiple sources, and as a consequence, information in this document may materially change the coding, format and clinical context of patient data. In addition, data may be omitted in some cases. CLINICAL DECISIONS SHOULD BE BASED ON THE PRIMARY CLINICAL RECORDS. [facility]. provides no warranty or guarantee of the accuracy or completeness of information in this document.
== END 2025-07-27 08:12 | disposition home or self-care (01) ==
PROVIDERS: Emergency Provider Emergency Medicine; PCP Family Medicine; Visit Provider Emergency Medicine
DX: S67.192A Crushing injury of right middle finger, initial encounter (principal); I10 Essential (primary) hypertension; S60.031A Contusion of right middle finger without damage to nail, initial encounter; Y99.0 Civilian activity done for income or pay; W23.0XXA Caught, crushed, jammed, or pinched between moving objects, initial encounter; Z23 Encounter for immunization
CPT/HCPCS: 73130; 90471; 90715; 99282